=== PATIENT | female | born 2000 | race Caucasian/White ===

== ENCOUNTER → 2023-09-28 08:51 | Outpatient (REF) | payer BC, SELFPAY ==
[2023-09-28 09:53] LABS: % Eosinophils 2.5 % (0-6); % Immature Granulocytes 0.4 % (0-0.5); % Lymphocytes 39.7 % (20.5-51.1); % Monocytes 7.6 % (1.7-9.3); % Neutrophils 48.8 % (42.2-75.2); Absolute Basophils 0.1 10^3/uL (0-0.2); Absolute Eosinophils 0.2 10^3/uL (0-0.7); Absolute Lymphocytes 2.7 10^3/uL (1.2-3.4); Absolute Monocytes 0.5 10^3/uL (0.1-0.6); Absolute Neutrophils 3.3 10^3/uL (1.4-6.5); Hemoglobin 11.8 g/dL (12.0-16.0); Mean Corp Hgb Conc. 33.7 g/dL (33.0-37.0); Mean Corpuscular Hgb 28.1 pg (27.0-31.0); Mean Corpuscular Volume 83.3 fL (81.0-99.0); Mean Platelet Volume 9.4 fL (7.4-10.4); Nucleated Red Blood Cells % 0 %; Platelet Count 305 10^3/uL (130-400); Red Cell Dist. Width 12.2 % (11.5-14.5); White Blood Cell Count 6.7 10^3/uL (4.8-10.8)
[2023-09-28 12:11] LABS: ALT (SGPT) 23 U/L (0-35); AST (SGOT) 26 U/L (14-36); Albumin 4.5 g/dl (3.5-5.0); Alkaline Phosphatase 54 U/L (38-126); Blood Urea Nitrogen 9 mg/dl (7-17); Calcium 9.7 mg/dl (8.4-10.2); Carbon Dioxide 25 mmol/L (22-30); Chloride 102 mmol/L (98-107); Glucose 69 mg/dl (70-99); HDL Cholesterol 53 mg/dl; LDL Cholesterol, Calculated 91 mg/dl; Potassium 4.2 mmol/L (3.5-5.1); Sodium 138 mmol/L (135-145); Total Bilirubin 0.5 mg/dl (0.2-1.3); Total Cholesterol 164 mg/dl (50-199); Total Protein 6.7 g/dl (6.3-8.2); Triglyceride 102 mg/dl (10-149); Very Low Density Lipoprotein 20 mg/dl (0-30); eGFR > 60.00
[2023-09-28 12:20] LABS: Glycohemoglobin (HgbA1c) 5.4 % (4.0-5.6)
[2023-09-28 12:35] LABS: TSH Reflex To Free T4 0.57 uIU/ml (0.47-4.68)
[2023-09-29 15:56] LABS: Iron 72 ug/dl (37-170)
[2023-09-29 16:05] LABS: Percent Saturation 25 % (20-50); Total Iron Binding Capacity 285 ug/dl (265-497)
[2023-09-29 17:05] LABS: Folate 16.9 ng/ml (2.76-20); Vitamin B12 672 pg/ml (239-931)
[2023-09-30 23:06] LABS: Insulin, Random 5 uIU/mL
== END ==
LOC: REG 08:51
PROVIDERS: ATTENDING PHYSICIAN Registered Nurse
DX: E66.8 Other obesity (principal); E28.2 Polycystic ovarian syndrome; E88.819 Insulin resistance, unspecified; E55.9 Vitamin D deficiency, unspecified
CPT/HCPCS: 36415; 80053; 80061; 82607; 82746; 83036; 83525; 83540; 83550; 84443; 85025

== ENCOUNTER → 2023-10-23 11:06 | Outpatient (REF) | payer BC, SELFPAY ==
[2023-10-23 13:18] LABS: Iron 73 ug/dl (37-170)
[2023-10-23 13:27] LABS: Percent Saturation 24 % (20-50); Total Iron Binding Capacity 300 ug/dl (265-497)
[2023-10-23 13:36] LABS: Ferritin 29.8 ng/ml (6.24-137)
[2023-10-23 13:51] LABS: Vitamin B12 633 pg/ml (239-931)
== END ==
LOC: REG 11:06
PROVIDERS: ATTENDING PHYSICIAN Registered Nurse
DX: D64.9 Anemia, unspecified (principal)
CPT/HCPCS: 36415; 82607; 82728; 83540; 83550

== ENCOUNTER → 2023-12-11 13:05 | Outpatient (REF) | payer BC, SELFPAY ==
[2023-12-11 16:37] LABS: IgG 823 mg/dl (700-1600); IgM 62 mg/dl (40-230)
[2023-12-11 22:44] LABS: IgA < 50 mg/dl (70-400)
[2023-12-13 17:55] LABS: Pneumococcal IgG Type 1 2.09 ug/mL; Pneumococcal IgG Type 12F 0.18 ug/mL; Pneumococcal IgG Type 14 0.24 ug/mL; Pneumococcal IgG Type 18C 2.99 ug/mL; Pneumococcal IgG Type 19F 26.84 ug/mL; Pneumococcal IgG Type 23F 4.81 ug/mL; Pneumococcal IgG Type 3 1.69 ug/mL; Pneumococcal IgG Type 4 1.51 ug/mL; Pneumococcal IgG Type 5 0.47 ug/mL; Pneumococcal IgG Type 6B 0.34 ug/mL; Pneumococcal IgG Type 8 8.89 ug/mL; Pneumococcal IgG Type 9N >11.04 ug/mL; Pneumococcal IgG Type 9V 1.56 ug/mL
== END ==
LOC: REG 13:05
PROVIDERS: ATTENDING PHYSICIAN Internal Medicine; FAMILY PHYSICIAN Registered Nurse
DX: D84.9 Immunodeficiency, unspecified (principal)
CPT/HCPCS: 36415; 82784; 86317

== ENCOUNTER → 2024-06-27 11:22 | Outpatient (REF) | payer BC, SELFPAY ==
[2024-06-27 12:33] LABS: % Basophils 0.9 % (0-2); % Eosinophils 2.2 % (0-6); % Immature Granulocytes 0.3 % (0-0.5); % Lymphocytes 33.6 % (20.5-51.1); % Monocytes 5.4 % (1.7-9.3); % Neutrophils 57.6 % (42.2-75.2); Absolute Basophils 0.1 10^3/uL (0-0.2); Absolute Eosinophils 0.2 10^3/uL (0-0.7); Absolute Lymphocytes 2.6 10^3/uL (1.2-3.4); Absolute Monocytes 0.4 10^3/uL (0.1-0.6); Absolute Neutrophils 4.4 10^3/uL (1.4-6.5); Hemoglobin 12.4 g/dL (12.0-16.0); Mean Corp Hgb Conc. 33.5 g/dL (33.0-37.0); Mean Corpuscular Volume 89.4 fL (81.0-99.0); Mean Platelet Volume 9.9 fL (7.4-10.4); Nucleated Red Blood Cells % 0 %; Platelet Count 257 10^3/uL (130-400); Red Blood Cell Count 4.14 10^6/uL (4.20-5.40); Red Cell Dist. Width 12.7 % (11.5-14.5); White Blood Cell Count 7.6 10^3/uL (4.8-10.8)
[2024-06-27 13:04] LABS: ALT (SGPT) 13 U/L (0-35); AST (SGOT) 22 U/L (14-36); Albumin 4.6 g/dl (3.5-5.0); Alkaline Phosphatase 38 U/L (38-126); Blood Urea Nitrogen 10 mg/dl (7-17); Calcium 9.4 mg/dl (8.4-10.2); Carbon Dioxide 27 mmol/L (22-30); Chloride 102 mmol/L (98-107); Glucose 87 mg/dl (70-99); HDL Cholesterol 64 mg/dl; LDL Cholesterol, Calculated 86 mg/dl; Potassium 4.8 mmol/L (3.5-5.1); Sodium 139 mmol/L (135-145); Total Bilirubin 0.6 mg/dl (0.2-1.3); Total Cholesterol 164 mg/dl (50-199); Total Protein 6.7 g/dl (6.3-8.2); Triglyceride 73 mg/dl (10-149); Very Low Density Lipoprotein 14 mg/dl (0-30); eGFR > 60.00
[2024-06-27 14:26] LABS: TSH 0.56 uIU/ml (0.47-4.68); TSH Reflex To Free T4 0.56 uIU/ml (0.47-4.68); Total Thyroxine 8.83 ug/dl (5.5-11.0); Vitamin B12 554 pg/ml (239-931); Vitamin D, 25-OH*** 29.6 ng/mL (30-80)
[2024-06-30 02:10] LABS: Total T3 (Sendout) 102 ng/dL (80-200)
== END ==
LOC: REG 11:22
PROVIDERS: ATTENDING PHYSICIAN Registered Nurse
DX: Z79.899 Other long term (current) drug therapy (principal); Z51.81 Encounter for therapeutic drug level monitoring; E66.811 Obesity, class 1
CPT/HCPCS: 36415; 80053; 80061; 82306; 82607; 83036; 84436; 84443; 84480; 85025

== ENCOUNTER → 2024-08-09 10:59 | Outpatient (REF) | payer BC, SELFPAY | LOC: HWRAD 10:59 | PROVIDERS: ATTENDING PHYSICIAN Internal Medicine Endocrinology, Diabetes & Metabolism; FAMILY PHYSICIAN Registered Nurse | DX: E06.3 Autoimmune thyroiditis (principal) | CPT/HCPCS: 76536 ==

== ENCOUNTER → 2024-08-15 10:42 | Outpatient (REF) | payer BC, SELFPAY ==
[2024-08-15 12:05] LABS: Free T4 1.18 ng/dl (0.78-2.19)
[2024-08-15 12:18] LABS: TSH 0.52 uIU/ml (0.47-4.68)
== END ==
LOC: REG 10:42
PROVIDERS: ATTENDING PHYSICIAN Internal Medicine Endocrinology, Diabetes & Metabolism; FAMILY PHYSICIAN Registered Nurse
DX: E06.3 Autoimmune thyroiditis (principal)
CPT/HCPCS: 36415; 84439; 84443

== ENCOUNTER → 2024-08-22 09:12 | Outpatient (REF) | payer BC, SELFPAY ==
[2024-08-23 15:46] LABS: Thyroid Stim. Immunoglobulin <0.10 IU/L (<=0.54)
[2024-08-23 23:16] LABS: TSH Receptor Antibody <1.10 IU/L (<=1.75)
== END ==
LOC: REG 09:12
PROVIDERS: ATTENDING PHYSICIAN Internal Medicine Endocrinology, Diabetes & Metabolism; FAMILY PHYSICIAN Registered Nurse
DX: E06.3 Autoimmune thyroiditis (principal); E27.8 Other specified disorders of adrenal gland; E04.1 Nontoxic single thyroid nodule
CPT/HCPCS: 36415; 83520; 83835; 84445

== ENCOUNTER → 2025-01-10 15:30 | Outpatient (REF) | payer BC, SELFPAY | LOC: RAD 15:30 | PROVIDERS: ATTENDING PHYSICIAN Internal Medicine Rheumatology; FAMILY PHYSICIAN Registered Nurse | DX: E53.8 Deficiency of other specified B group vitamins (principal); E55.9 Vitamin D deficiency, unspecified; G89.29 Other chronic pain; M25.50 Pain in unspecified joint; M25.511 Pain in right shoulder; M25.512 Pain in left shoulder; M54.50 Low back pain, unspecified | CPT/HCPCS: 72110; 72202; 73030 ==